=== PATIENT | female | born 1955 | race Caucasian/White ===

== ENCOUNTER 2017-04-12 13:51 | Emergency (ER) | payer OTHER ==
[2017-04-12 15:32] LABS: ADD MAN DIFF? NO
[2017-04-12 15:34] LABS: BASO # 0.1 x10^3/uL (0.0-0.2); BASO % 2 % (0-3); EOS # 0.1 x10^3/uL (0.0-0.7); EOS % 2 % (0-3); HEMATOCRIT 43.6 % (36.0-47.0); HEMOGLOBIN 14.2 g/dL (12.0-15.5); LYMPH # 1.8 x10^3/uL (1.0-4.8); LYMPH % 33 % (24-48); MEAN CORPUSCULAR HEMOGLOBIN 30 pg (25-35); MEAN CORPUSCULAR HGB CONC 33 g/dL (31-37); MEAN CORPUSCULAR VOLUME 92 fL (79-100); MONO # 0.4 x10^3/uL (0.0-1.1); MONO % 8 % (0-9); NEUT % 55 % (31-73); PLATELET COUNT 330 x10^3/uL (140-400); RED BLOOD COUNT 4.73 x10^6/uL (3.50-5.40); RED CELL DISTRIBUTION WIDTH 13.1 % (11.5-14.5); WHITE BLOOD COUNT 5.4 x10^3/uL (4.0-11.0)
[2017-04-12 15:43] LABS: PROTHROMBIN TIME PATIENT 12.6 SEC (11.7-14.0)
[2017-04-12 15:46] LABS: D-DIMER 0.32 ug/mlFEU (0.00-0.50)
[2017-04-12 15:56] LABS: ANION GAP 11 (6-14); BLOOD UREA NITROGEN 10 mg/dL (7-20); BUN/CREATININE RATIO 14 (6-20); CALCIUM 9.7 mg/dL (8.5-10.1); CARBON DIOXIDE 27 mmol/L (21-32); CHLORIDE 105 mmol/L (98-107); CREATININE 0.7 mg/dL (0.6-1.0); GFR 84.5; GLUCOSE 101 mg/dL (70-99); POTASSIUM 3.5 mmol/L (3.5-5.1); SODIUM 143 mmol/L (136-145)
[2017-04-12 16:03] LABS: ALBUMIN/GLOBULIN RATIO 1.1 (1.0-1.7); ALK PHOS 68 U/L (46-116); ALT (SGPT) 20 U/L (14-59); AST (SGOT) 14 U/L (15-37); BARBITURATES NEG (NEG); BENZODIAZEPINES NEG (NEG); CANNABINOIDS NEG (NEG); COCAINE NEG (NEG); LIPASE 114 U/L (73-393); MAGNESIUM 1.8 mg/dL (1.8-2.4); METHADONE NEG (NEG); OPIATES NEG (NEG); PHENCYCLIDINE NEG (NEG); TOTAL PROTEIN 7.8 g/dL (6.4-8.2)
[2017-04-12 16:09] LABS: AMPHETAMINE/METHAMPHETAMINE NEG (NEG); ETHANOL, URINE NEG (NEG)
[2017-04-12 16:09] LABS: THYROID STIM HORMONE (TSH) 0.439 uIU/mL (0.358-3.74)
[2017-04-12 16:11] LABS: TROPONINI < 0.017 ng/mL (0.000-0.055)
[2017-04-12 16:12] LABS: CKMB MASS 0.8 ng/mL (0.0-3.6); CREATINE KINASE 78 U/L (26-192)
[2017-04-12 16:12] LABS: NT-PRO BNP 76 pg/mL (0-124)
== END 2017-04-12 17:11 | disposition home or self-care (01) ==
LOC: ER 13:51
DX: M54.6 Pain in thoracic spine (principal)
CPT/HCPCS: 36415; 71045; 80053; 80307; 82553; 83690; 83735; 83880; 84443; 84484; 85025; 85379; 85610; 93005; 99285-25